=== PATIENT | female | born 1990 | race Caucasian/White ===

== ENCOUNTER 2018-06-11 06:59 | Emergency (ER) | payer OTHER ==
[2018-06-11 07:42] LABS: BILIRUBIN,URINE NEGATIVE (NEGATIVE); GLUCOSE, URINE (UA) NEGATIVE (NEGATIVE); KETONES,URINE (UA) NEGATIVE (NEGATIVE); LEUKOCYTE ESTERASE, URINE NEGATIVE (NEGATIVE); NITRITE,URINE NEGATIVE (NEGATIVE); OCCULT BLOOD,URINE NEGATIVE (NEGATIVE); PROTEIN,URINE NEGATIVE (NEGATIVE); UROBILINOGEN,URINE 0.2 (NORMAL) E.U./dL (NORMAL)
[2018-06-11 07:43] LABS: CLARITY,URINE HAZY (CLEAR)
[2018-06-11 08:10] LABS: BACTERIA,URINE Moderate /HPF (None Seen); RBC,URINE 0-5 /HPF (0-5); SQUAMOUS EPITHELIAL CELL,UR MANY Squamous (<= Few)
--- NOTE | 2018-06-11 09:18 | ED Physician Documentation ---
PD HPI FEMALE - Stated complaint Stated Complaint: SIDE PX/BLOOD IN URINE 5WKS PREG - Chief complaint Chief Complaint: UTI - History obtained from History obtained from: Patient, EMS - History of Present Illness Timing - onset: How many days ago (few) Timing - duration: Days Timing - details: Gradual onset, Still present Associated symptoms: Dysuria, Urinary frequency. No: Fever, Vaginal bleeding, Genital sore/lesion Contributing factors: [employer] History: G (1), P (2) Similar symptoms before: Diagnosis (uti) Recently seen: Clinic (seen a week ago and Rx Amox for UTI. She says she improved some for 1-2 days but symptoms increaingly worse the past few days.) Review of Systems Constitutional: denies: Fever, Chills, Myalgias Nose: denies: Rhinorrhea / runny nose, Congestion Throat: denies: Sore throat Respiratory: denies: Cough GI: reports: Nausea. denies: Vomiting, Diarrhea : reports: Dysuria, Frequency, Hematuria, Now EGA. denies: Discharge , Vaginal bleeding Skin: denies: Rash, Lesions PD PAST MEDICAL HISTORY - Past Medical History Cardiovascular: None Respiratory: None Neuro: None Endocrine/Autoimmune: None - Present Medications Home Medications: Ambulatory Orders Medication Instructions Recorded Confirmed Cephalexin [Keflex] 500 mg PO TID #15 capsule 06/11/18 Naproxen 375 mg PO BID #20 tablet 06/11/18 Ondansetron Odt [Zofran] 4 mg TL Q6H PRN #15 tablet 06/11/18 - Allergies Allergies/Adverse Reactions: Allergies Allergy/AdvReac Type Severity Reaction Status Date / Time No Known Drug Allergies Allergy Verified 06/11/18 07:07 PD ED PE NORMAL - Vitals Vital signs reviewed: Yes - General General: Alert and oriented X 3, No acute distress, Well developed/nourished - HEENT HEENT: Pharynx benign - Neck Neck: Supple, no meningeal sign, No adenopathy - Cardiac Cardiac: RRR, No murmur - Respiratory Respiratory: Clear bilaterally - Abdomen Abdomen: Normal bowel sounds, Soft, Non tender, Non distended, No organomegaly - Female Female : Deferred - Rectal Rectal: Deferred - Back Back: No CVA TTP - Derm Derm: Normal color, Warm and dry Results - Vitals Vitals: Oxygen O2 Source Room air - Labs Labs: Laboratory Tests 06/11/18 06/11/18 06/11/18 07:39 10:26 10:26 WBC 4.8 RBC 4.41 Hgb 13.5 Hct 39.2 MCV 88.9 MCH 30.6 MCHC 34.4 RDW 13.0 Plt Count 164 MPV 8.4 Neut # (Auto) 3.2 Lymph # (Auto) 1.3 L [place] # (Auto) 0.3 Eos # (Auto) 0.0 Baso # (Auto) 0.0 Absolute Nucleated RBC 0.00 Nucleated RBC % 0.1 HCG, Quant 2156.00 Urine Color YELLOW Urine Clarity HAZY Urine pH 6.0 Ur Specific Avis >=1.030 H Urine Protein NEGATIVE Urine Glucose (UA) NEGATIVE Urine Ketones NEGATIVE Urine Occult Blood NEGATIVE Urine Nitrite NEGATIVE Urine Bilirubin NEGATIVE Urine Urobilinogen 0.2 (NORMAL) Ur Leukocyte Esterase NEGATIVE Urine RBC 0-5 Urine WBC 0-3 Ur Squamous Epith Cells MANY Squamous H Urine Bacteria Moderate H Ur Microscopic Review INDICATED Urine Culture Comments NOT INDICATED - Rads (name of study) OB U/S Radiology: Prelim report reviewed (IUP at 5 week size. ) PD MEDICAL DECISION MAKING - ED course Complexity details: reviewed results (bedside U/S by me showing IUP about 5 week size. However that this was infertliity with CLomid, I would be aware of some risk for heterogenous . Will get formal U/S), considered differential, d/w patient - Sepsis Event Vital Signs: Oxygen O2 Source Room air Departure - Departure Disposition: 01 Home, Self Care Clinical Impression: Pelvic pain affecting Qualifiers: Trimester: first trimester Qualified Code(s): O26.891 - Other specified related conditions, first trimester Condition: Stable Record reviewed to determine appropriate education?: Yes Follow-Up: Clovis Mc ARNP [Primary Care Provider] - Prescriptions: Cephalexin [Keflex] 500 mg PO TID #15 capsule Naproxen 375 mg PO BID #20 tablet Ondansetron Odt [Zofran] 4 mg TL Q6H PRN #15 tablet PRN Reason: Nausea / Vomiting Comments: Drink lots of fluids. Your ultrasound showed just a single that measured about 5 weeks gestation. There is no signs of secondary pregnancies or other abnormalities in the ovaries or tubes. We can change antibiotics to a different one for your bladder. You can use some anti-inflammatories at this point in . Naproxen twice daily for the next 5-7 days. Ondansetron if needed for nausea. Add Tylenol if needed for pains. Stop the amoxicillin and changed to cephalexin 3 times a day for 5 days. Follow-up with your primary care in the next few days, call for appointment. Discharge Date/Time: 06/11/18 12:58
[2018-06-11] MEDS ORDERED: ONDANSETRON ODT 4 MG TABLET TL STA (09:56)
[2018-06-11] MEDS ORDERED: IBUPROFEN 600 MG TABLET PO STA (09:56)
[2018-06-11 10:30] LABS: BASOPHILS % (AUTO) 0.6 %; HGB - HEMOGLOBIN 13.5 g/dL (12.0-16.0); LYMPHOCYTES # (AUTO) 1.3 10^3/uL (1.5-3.5); LYMPHOCYTES % (AUTO) 26.6 %; MEAN CORPUSCULAR HEMOGLOBIN 30.6 pg (27.0-31.0); MEAN CORPUSCULAR HGB CONC 34.4 g/dL (32.0-36.0); MEAN CORPUSCULAR VOLUME 88.9 fL (81.0-99.0); MEAN PLATELET VOLUME 8.4 fL (7.9-10.8); MONOCYTES # (AUTO) 0.3 10^3/uL (0.0-1.0); MONOCYTES % (AUTO) 6.1 %; NEUTROPHILS # (AUTO) 3.2 10^3/uL (1.5-6.6); NEUTROPHILS % (AUTO) 65.7 %; PLT - PLATELET COUNT 164 10^3/uL (130-450); RED BLOOD COUNT 4.41 10^6/uL (4.20-5.40); WHITE BLOOD COUNT 4.8 x10^3/uL (4.8-10.8)
[2018-06-11] MEDS ORDERED: cephALEXin 250 MG CAPSULE PO STA (11:21)
--- NOTE | 2018-06-11 12:41 | Ultrasound Report ---
Reason: early (infertility); RLQ pain Procedure Date: 06/11/2018 Accession Number: [id number] / [id number] Procedure: US - OB First Trimester CPT Code: FULL RESULT: EXAM: FIRST TRIMESTER OBSTETRIC ULTRASOUND (Less than 11 weeks) EXAM DATE: 06/11/2018 12:22 PM. CLINICAL HISTORY: Early (infertility); RLQ pain. Beta-hCG 2156. Infertility treatment. LMP: Unknown. COMPARISONS: None. TECHNIQUE: Transabdominal and transvaginal ultrasound examination with static image documentation. CLINICAL DATES: EGA 3 weeks, 2 days with KEVIN 02/23/2019 based on stated dating/infertility treatment. ASSESSMENT: Gestational Sac: Cystic collection within the endometrial cavity possibly gestational sac. If this were to represent a gestational sac then. Mean gestational sac diameter: 6 mm = 4 weeks, 3 days. The cystic fluid collection is present in the cephalad and left aspect of the endometrial cavity although appears to have surrounding endometrium. Embryo: None visualized. Cardiac activity: None. Yolk sac: None visualized. Amniotic fluid: Not accurately assessed at this gestational age. Early placenta: Not visible at this gestational age. Other: No perigestational fluid collection demonstrated. MATERNAL STRUCTURES: Uterus: Anteverted. Unremarkable. Cervix: Closed. Right Ovary/Adnexa: Prominent and heterogeneous. The ovary measures 3.9 x 2.0 x 3.1 cm, volume 12.6 cc. Left Ovary/Adnexa: Unremarkable. The ovary measures 2.1 x 1.3 x 2.2 cm, volume 3.1 cc. Free Fluid: Small to moderate volume of pelvic free fluid.. Other: None. IMPRESSION: 1. Cystic fluid collection within the cephalad and far left aspect of the endometrial cavity which if this were to represent a gestational sac would correspond with a gestational age of 4 weeks, 3 days . No yolk sac or embryo is identified although an embryo may not yet be identified at this presumed gestational sac size. Due to the size and position of the cystic collection, short-term follow-up ultrasound is recommended in 10-14 days for reassessment. Differential considerations include an early intrauterine gestation, unsuccessful versus a pseudogestational sac and ectopic not yet visualized. 2. Assigned dating is KEVIN 3 weeks, 2 days based on stated dating/infertility treatment. 3. Prominent heterogeneous right ovary, mildly enlarged. Normal left ovary. RADIA
[2018-06-11 12:58] VITALS: BP 116/63
== END 2018-06-11 12:58 | disposition home or self-care (01) ==
LOC: ED 06:59
DX: O26.891 Other specified pregnancy related conditions, first trimester (principal); Z3A.01 Less than 8 weeks gestation of pregnancy; R30.0 Dysuria; R31.9 Hematuria, unspecified; R35.0 Frequency of micturition
CPT/HCPCS: 36415; 76801; 76817; 81001; 84702; 85025; 99283; A9270; Q0162; 81003; 87086